=== PATIENT | male | born 1975 | race Caucasian/White ===

== ENCOUNTER 2016-08-09 08:26 | Emergency (ER) | payer MEDICAID, OTHER ==
[2016-08-09] MEDS ORDERED: DILAUDID 1 MG/ML AMP ONE ×2 (09:22→12:23)
[2016-08-09] MEDS ORDERED: KETOROLAC 30 MG/ML VIAL ONE (09:22)
[2016-08-09] MEDS ORDERED: ONDANSETRON 4 MG VIAL ONE (09:22)
[2016-08-09] MEDS ORDERED: SODIUM CHLORIDE 0.9% 1,000 ML ONE (12:23)
== END 2016-08-09 13:54 | disposition home or self-care (01) ==
LOC: ER 08:26
DX: N20.2 Calculus of kidney with calculus of ureter (principal)
CPT/HCPCS: 36415; 74176; 80053; 80307; 81001; 83690; 85025; 96361; 96375; 96376